=== PATIENT | male | born 1930 | race Caucasian/White ===

== ENCOUNTER → 2018-01-05 | Outpatient (CLI) | payer MEDICARE ==
--- NOTE | 2018-01-09 10:04 | RSPPFT ---
DATE OF PROCEDURE: 01/05/18 COMMENTS: VOLUMES DYNAMIC: FVC and FEV1 severely reduced. FLOWS: FEV1% normal; FEF 25-75 severely reduced. FLOW VOLUME LOOP: Pattern of variable intrathoracic airways obstruction. IMPRESSION: Severe obstructive ventilatory defect and he was unable to perform full lung volumes and diffusion. No improvement in FEV1 post-bronchodilator.
== END ==
LOC: HRSP 12:22
PROVIDERS: ATTEND Internal Medicine
DX: J44.9 Chronic obstructive pulmonary disease, unspecified (principal)
CPT/HCPCS: 36600; 82805; 94060